=== PATIENT | male | born 1975 | race Caucasian/White ===

== ENCOUNTER 2018-12-04 17:14 | Emergency (ER) | payer OTHER ==
[2018-12-04] MEDS ORDERED: LIDOCAINE HCL 2% (20ML MULTI-DOSE VIAL) NR ONE (17:43)
[2018-12-04] MEDS ORDERED: DIPHTH,PERTUSS(ACELL),TET 0.5 ML DISP.SYRIN IM ONE (17:43)
[2018-12-04 17:49] VITALS: BP 132/91; PULSE 74; TEMP 98.3; BMI 22.4
== END 2018-12-04 18:28 | disposition home or self-care (01) ==
LOC: FER 17:14
PROC: 0HQDXZZ Repair Right Lower Arm Skin, External Approach (ICD-10-PCS; principal; 2018-12-04)
DX: S61.511A Laceration without foreign body of right wrist, initial encounter (principal); W26.0XXA Contact with knife, initial encounter; Y93.89 Activity, other specified; Y92.9 Unspecified place or not applicable; Y99.0 Civilian activity done for income or pay
CPT/HCPCS: 99282-25

== ENCOUNTER 2018-12-09 13:13 | Emergency (ER) | payer OTHER ==
[2018-12-09 13:25] VITALS: BP 110/76; PULSE 76; TEMP 98.2; BMI 21.7
--- NOTE | 2018-12-09 13:28 | PDOC ---
History of Present Illness - General Chief Complaint: Revisit,Wound Recheck Stated Complaint: wound check Time Seen by Provider: 12/09/18 13:18 History Source: Patient Exam Limitations: No Limitations - History of Present Illness Initial Comments: 12/09/18 13:30 43y no pMHx presents for wound check. he sustained a cut last sun, was close dwith stables and was told to come for woundcheck on sunday. he has no complaints including redness/swelling or pain physical exam general: no distress L wrist: davonte in place on radial aspect of L wrist, no erythmea/induration/ flucutance or discharge woulnd appears well will have pt reutrn on sun for staple removal return precautions were discsused Past History - Past Medical History Allergies/Adverse Reactions: Allergies Allergy/AdvReac Type Severity Reaction Status Date / Time No Known Allergies Allergy Verified 12/09/18 13:15 Home Medications: Ambulatory Orders NK [No Known Home Medication] 12/04/18 COPD: No - Immunization History Immunization Up to Date: Yes - Suicide/Smoking/Psychosocial Hx Smoking History: Never smoked Have you smoked in the past 12 months: No Information on smoking cessation initiated: No Hx Alcohol Use: No Drug/Substance Use Hx: No *Physical Exam - Vital Signs Last Vital Signs Temp Pulse Resp BP Pulse Ox 98.2 F 76 20 110/76 99 12/09/18 13:14 12/09/18 13:14 12/09/18 13:14 12/09/18 13:14 12/09/18 13:14 *DC/Admit/Observation/Transfer Diagnosis at time of Disposition: Visit for wound check - Discharge Dispostion Disposition: HOME Condition at time of disposition: Improved Decision to Admit order: No - Referrals - Patient Instructions Additional Instructions: return for staple removal as scheduled - Post Discharge Activity Forms/Work/School Notes: Back to Work
== END 2018-12-09 13:42 | disposition home or self-care (01) ==
LOC: FER 13:13
DX: Z48.01 Encounter for change or removal of surgical wound dressing (principal)
CPT/HCPCS: 99281-25

== ENCOUNTER 2018-12-11 13:08 | Emergency (ER) | payer OTHER ==
[2018-12-11 13:24] VITALS: BP 122/88; PULSE 78; TEMP 98.4; BMI 21.7
--- NOTE | 2018-12-11 13:24 | PDOC ---
Suture Removal/Wound Check HPI - History of Present Illness Chief Complaint: Suture/Staple Removal(Here) Stated Complaint: STAPLE REMOVAL Time Seen by Provider: 12/11/18 13:15 - Onset of Previous Treatment Comment:: 12/11/18 14:03 Patient with laceration, dorsum of left wrist, repaired with davonte 1 week ago. Healing well. No pain or drainage. No swelling or redness. No warmth. Clean and dry, edges well approximated Davonte 4 removed in the usual manner. Bacitracin. Steri-Strips. Band-Aid. To maintain bandage for 3 days. Then bacitracin and Band-Aid until well-healed. Past History - Past Medical History Allergies/Adverse Reactions: Allergies Allergy/AdvReac Type Severity Reaction Status Date / Time No Known Allergies Allergy Verified 12/11/18 13:09 Home Medications: Ambulatory Orders NK [No Known Home Medication] 12/11/18 COPD: No - Immunization History Immunization Up to Date: Yes - Suicide/Smoking/Psychosocial Hx Smoking History: Never smoked Have you smoked in the past 12 months: No Hx Alcohol Use: No Drug/Substance Use Hx: No *DC/Admit/Observation/Transfer Diagnosis at time of Disposition: Removal of davonte - Discharge Dispostion Disposition: HOME Condition at time of disposition: Improved Decision to Admit order: No - Referrals - Patient Instructions Additional Instructions: Keep clean and dry and leave dressing in place for 3 more days. Recheck if pain or other sign of infection such as redness, swelling, or drainage. - Post Discharge Activity Forms/Work/School Notes: Back to Work
== END 2018-12-11 13:33 | disposition home or self-care (01) ==
LOC: FER 13:08
DX: Z48.02 Encounter for removal of sutures (principal)
CPT/HCPCS: 99281-25